=== PATIENT | female | born 1980 | race African-American/Black ===

== ENCOUNTER 2017-03-29 19:06 | Inpatient (IN) ==
[2017-03-29] MEDS ORDERED: ALBUTEROL/IPRATROPIUM 3 ML NEB RESP TX STA (20:09)
[2017-03-29] MEDS ORDERED: methylPREDNISolone SOD SUC 125 MG/2 ML VIAL IV STA (20:09)
[2017-03-29] MEDS ORDERED: MORPHINE 2 MG/1 ML SYRINGE IV STA (20:09)
[2017-03-29] MEDS ORDERED: ONDANSETRON 4 MG/2 ML VIAL IV STA (20:09)
[2017-03-29] MEDS ORDERED: ASPIRIN 325 MG TABLET PO STA (20:09)
[2017-03-29] MEDS ORDERED: FUROSEMIDE 40 MG/4 ML VIAL IV STA (20:09)
--- NOTE | 2017-03-29 20:11 | Emergency Department Note ---
Keven Castano Brittany, am scribing for, and in the presence of, Jesus Woo MD 19:53. Amna Castano Charles R, MD, personally performed the services described in this documentation, ascribed by Suzan Baca in my presence, and it is both accurate and complete . Arrival - Arrival Chief Complaint: Chest Pain Stated Complaint: sob, chest pain ED Nursing Triage Note: TO ER PER W/C WITH COMPLAINT OF SOB THAT STARTED AFTER WALKING DOWN FLIGHT OF STAIRS LEAVING WORK AROUND 1730. PATIENT STATES AFTER SEVERAL BREAKS AND USING INHALER ALSO, SOB DID NOT IMPROVE. PATIENT ALSO REPORTS CHEST PAIN- ,MIDSTERNAL AND NON RADIATING. Mode of Arrival: Ambulatory Limitations: No Limitations Source: Patient - History of Present Illness HPI Narrative: Patient is a 37 y/o black female presenting to the ED with c/o mid-sternal chest pain described as a heaviness that is non-radiating in nature with associated shortness of breath that began around 1730 this evening. Patient states that upon getting off of work she noticed after walking down a flight of stairs she began to feel lightheaded, short of breath, and her chest began to feel heavy. Patient states the more she continued to walk she had difficulty catching her breath and began to experience a pounding headache and vertigo. Patient reports that after taking several breaks and using her inhaler, SOB and other symptoms did not improve. Patient states that she has noticed some swelling of her bilateral lower extremities. Patient says that she does have a history of Sleep Apnea, but does not utilize a home C-Pap machine although she reports that she probably should be using one. Patient states that she was prescribed an inhaler August of 2016 after diagnosis of Bronchitis. Patient denies prior history of Asthma, HTN, IDDM, or NIDDM. Patient states that she is baffled about her current condition due to waking up great this morning and feeling fine most of the day until this evening. Patient has no other complaints. Date of Last Menstrual Period: HYST Allergies/Adverse Reactions: Allergies Allergy/AdvReac Type Severity Reaction Status Date / Time No Known Allergies Allergy Verified 03/29/17 19:26 Review of System - Review of System 12 point system: reviewed and no additional remarkable complaints except as stated - Review of System Constitutional: Absent: chills, fever Eyes: Absent: vision change Respiratory: Present: respiratory distress Cardiovascular: Present: chest pain, edema Gastrointestinal: Absent: nausea, vomiting Musculoskeletal: Absent: arm pain, back pain Neurological: Present: headache, vertigo Medical,Surgical,& Family Hx - Medical History Cardio: History of: Hypertension - Surgical History Reproductive Surgeries: Surgical HX of;: Hysterectomy, Tubal Ligation - Family History Family History: noncontributory - Social History Smoking Status: Never smoker Frequency of Alcohol Use: None Type of Drug Use: None Exam Vital Signs: Vital Signs Temperature 98.1 F 03/29/17 19:08 Pulse Rate 116 H 03/29/17 20:27 Respiratory Rate 20 03/29/17 20:27 Blood Pressure 104/89 03/29/17 19:08 O2 Sat by Pulse Oximetry 99 03/29/17 21:21 - General General appearance: alert, in no apparent distress - Head Head exam: Present: atraumatic, normocephalic, normal inspection - Eye Eye exam: Present: normal appearance, PERRL, EOMI - ENT ENT exam: Present: normal exam, normal oropharynx - Neck Neck exam: Present: normal inspection, full ROM, trachea midline - Chest Chest inspection: Present: normal inspection, symmetric chest wall rise - Respiratory Respiratory exam: Present: rales (bilateral bases), wheezes (bilaterally). Absent: normal lung sounds bilaterally (decreased breath sounds bilaterally) - Cardiovascular Cardiovascular exam: Present: normal rhythm, tachycardia, normal heart sounds. Absent: regular rate - Abdominal Exam Abdominal exam: Present: soft, normal bowel sounds. Absent: tenderness - Extremities Exam Extremities exam: Present: pedal edema (+1 edema to bilateral lower extremities) - Back Exam Back exam: Present: normal inspection - Neurological Exam Neurological exam: Present: alert, oriented X3, CN II-XII intact. Absent: motor sensory deficit - Psychiatric Psychiatric exam: Present: normal affect, normal mood - Skin Skin exam: Present: warm, dry Course - Consultations Consultation #1: Dr. Huang was notified of the blood clot we are going to determine if she has got right heart strain or not to do theEKOS procedure or not, patient will be given Lovenox 1 mg/kg subcu in the emergency room Time: 21:18 Consultation #2: Spoke to Dr. Martinez he says to anticoagulate her, admits to the ICU and admitted to hospitalist service, Dr. Martinez will come in and do a EKOS procedure for a bilateral pulmonary embolus Time: 21:58 Results - Labs CBC & BMP: 03/29/17 19:35 03/29/17 19:35 Lab Results: I have reviewed the patients labs Labs: Laboratory Tests 03/29/17 03/29/17 03/29/17 19:35 19:35 19:35 WBC 8.7 RBC 4.79 Hgb 13.8 Hct 41.5 MCV 86.6 L Plt Count 254 Magnesium 2.1 Troponin I 0.214 H Lipase 170.0 Laboratory Tests 03/29/17 03/29/17 19:35 19:35 D-Dimer, Quantitative 8.4 Sodium 140 Potassium 3.4 L Chloride 103 Carbon Dioxide 27 BUN 14 Creatinine 1.10 H Glucose 135 H Albumin 3.3 L Globulin 4.6 H Albumin/Globulin Ratio 0.7 L Laboratory Tests 03/29/17 03/29/17 19:35 20:55 B-Natriuretic Peptide 23 Urine Color Straw Urine Appearance Clear Urine pH 6.0 Ur Specific [place] 1.008 Urine Protein Negative Urine Glucose (UA) Negative Urine Ketones Negative Urine Blood Small Urine Nitrate Negative Urine Bilirubin Negative Urine Urobilinogen < 2.0 H Urine Leukocytes Negative Urine RBC 1 Urine WBC 2 Ur Squamous Epith Cells Occasional Urine Mucus Occasional - Diagnostic Findings Procedure: Chest x-ray: report reviewed by me (Negative chest.), CT - chest: image reviewed by me, report reviewed by me (Bilateral central and peripheral pulmonary embolus with right heart strain), Ultrasound: image reviewed by me ( Negative DVT lower extremity) Critical Care Time Critical Care Time: Yes Total Critical Care Time: 60 Disposition Clinical Impression: Chest pain, Acute dyspnea, Acute bilateral pulmonary embolus Case discussed with: patient, patient's family Disposition: Still a Patient Condition: Critical Time of Disposition: 22:08
--- NOTE | 2017-03-29 20:15 | XRay Report ---
XR chest 2V Indication: Shortness of breath with chest pain. Chest 2 views: Comparison 01/15/2010. The heart size and mediastinal contour are normal. The lungs and pleural spaces are clear. Bones are unremarkable. Impression: Negative chest. PROCEDURE INTERPRETED AT [facility] DEPARTMENT OF RADIOLOGY Final Report Signed by: Ernie Roca M.D.
[2017-03-29] MEDS ORDERED: FUROSEMIDE 40 MG/4 ML VIAL ONE (20:17)
[2017-03-29] MEDS ORDERED: ONDANSETRON 4 MG/2 ML VIAL ONE (20:17)
[2017-03-29] MEDS ORDERED: ASPIRIN 325 MG TABLET ONE (20:18)
[2017-03-29] MEDS ORDERED: methylPREDNISolone SOD SUC 125 MG/2 ML VIAL ONE (20:18)
[2017-03-29] MEDS ORDERED: MORPHINE 2 MG/1 ML SYRINGE ONE (20:22)
[2017-03-29 20:23] LABS: Basophils # 0.1 10*3/uL (0.0-0.2); Basophils % 0.6 % (0.0-0.8); Eosinophils # 0.1 10*3/uL (0.0-0.87); Hematocrit 41.5 VOL% (35.7-47.0); Hemoglobin 13.8 GM/DL (12.0-16.0); Immature Granulocytes % 0.2 %; Immature Granulocytes Absolute 0.02 #; Lymphocytes # 2.4 10*3/uL (1.4-4.0); Lymphocytes % 27.9 % (21.3-54.2); Mean Corpuscular HGB Conc 33.3 GM/DL (32-36); Mean Corpuscular Hemoglobin 29 PG (27-34); Mean Corpuscular Volume 86.6 FL (87-102); Mean Platelet Volume 10.7 FL (9.6-12.0); Monocytes # 0.5 10*3/uL (0.11-0.8); Monocytes % 5.2 % (1.7-12.7); Neutrophils # 5.7 10*3/uL (1.4-7.4); Neutrophils % 65.1 % (38.7-73.9); Platelet Count 254 T/CUMM (130-400); Red Blood Count 4.79 MC/CUMM (3.8-5.5); Red Cell Distribution Width 13.2 % (9.3-17.3); White Blood Count 8.7 T/CUMM (4-12)
[2017-03-29 20:31] LABS: Magnesium 2.1 MG/DL (1.8-2.4)
[2017-03-29 20:44] LABS: Alanine Aminotransferase 32 U/L (13-56); Albumin 3.3 G/DL (3.4-5.0); Alkaline Phosphatase 113 U/L (45-117); Aspartate Amino Transferase 37 U/L (0-37); Bilirubin,Total < 0.39 MG/DL (0.2-1.0); Blood Urea Nitrogen 14 MG/DL (7-18); Calcium 8.8 MG/DL (8.5-10.1); Glucose 135 MG/DL (74-106); Osmolality,Calculated 281.4 MOS/KG (273-304); Potassium 3.4 MMOL/L (3.5-5.1); Sodium 140 MMOL/L (136-145); Total Protein 7.9 G/DL (6.4-8.3)
[2017-03-29 21:05] LABS: Apearance,Urine CLEAR (Clear); Bilirubin,Urine Negative (Negative); Blood, Urine Small mg/dL (Negative); Glucose,Urine (UA) Negative (Negative); Ketones,Urine Negative (Negative); Mucus,Urine Occasional /LPF (Occasional); Nitrite,Urine Negative (Negative); Protein,Urine Negative; RBC,Urine 1 /HPF (0-4); Squamous Epithelial Cell,Urine Occasional /HPF (0-10); Urine Color Straw (Yellow); Urine Specific Gravity 1.008 (1.001-1.035); Urine Urobilinogen < 2.0 EU/DL (0.2-1.0); WBC,Urine 2 /HPF (0-6)
[2017-03-29] MEDS ORDERED: ENOXAPARIN 100 MG/ML SYRINGE SUBCUT STA (21:17)
[2017-03-29] MEDS ORDERED: ENOXAPARIN 40 MG/0.4 ML SYRINGE ONE (21:24)
[2017-03-29] MEDS ORDERED: ENOXAPARIN 120 MG/0.8 ML SYRINGE SUBCUT ONE (21:24)
[2017-03-29] MEDS ORDERED: HEPARIN/NACL 0.9% 2 UNITS/ML 500 ML IV ONE ×2 (22:28→23:19)
[2017-03-29] MEDS ORDERED: LIDOCAINE 1% 20 ML VIAL ONE (22:28)
[2017-03-29] MEDS ORDERED: fentaNYL 100 MCG/2 ML VIAL ONE (22:28)
[2017-03-29] MEDS ORDERED: MIDAZOLAM 2 MG/2 ML VIAL ONE (22:28)
--- NOTE | 2017-03-29 22:34 | Cardiology Consult Note ---
Assessment and Plan - Time spent with patient Time spent with patient: Less than 30 minutes (1) Bilateral pulmonary embolism Status: Chronic Current Visit: Yes (2) Obstructive sleep apnea Status: Chronic Current Visit: Yes (3) Hypertension Status: Chronic Current Visit: Yes (4) Morbid exogenous obesity Status: Acute Current Visit: Yes History of Present Illness - Data of Consult Patient: new to practice Consult date: 03/29/17 Requesting Physician: Jesus Woo Primary care physician: Tabby Robles - Consult Narrative Reason for consult: Bilateral pulmonary emboli right ventricular enlargement History of present illness: Ms. 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 She states she had to stop several times walking her car which is unusual for her. She came to the emergency room and I was called approximately 9 PM stating that she had large bilateral pulmonary emboli her heart rate was in 112 bpm and her blood pressure was in the 1 teens over 70s. She had a venous Doppler and I am awaiting that result. I reviewed her CT scan from home and she has right ventricular enlargement. She also has bilateral pulmonary emboli in the main pulmonary arteries bilaterally. She has untreated obstructive sleep apnea which she has been told about but does not treat which may contribute to long-standing right ventricular enlargement. I discussed with Dr. Woo over the phone multiple times and came to see the patient. I examined the patient with a very large crowd of friends and family in the emergency room the patient was sitting up in the bed heart rate was 110 bpm blood pressure was 117/72 saturating 98% on 2 L nasal cannula she was obviously dyspneic as she demonstrated tachypnea with a respiratory rate in the low 20s. CC: - Home Medications and Allergies Allergies/Adverse Reactions: Allergies Allergy/AdvReac Type Severity Reaction Status Date / Time No Known Allergies Allergy Verified 03/29/17 19:26 - Constitutional Constitutional: Absent: anorexia, chills - Respiratory Respiratory: Present: cough, dyspnea, dyspnea on exertion, snoring - Gastrointestinal Gastrointestinal: Absent: abdominal pain - Genitourinary Genitourinary: Absent: abnormal vaginal bleeding - Musculoskeletal Musculoskeletal: Absent: arthralgias - Neurological Neurological: Absent: disequilibrium - Endocrine Endocrine: Absent: cold intolerance - Hematologic/Lymphatic Hematologic/Lymphatic: Absent: easy bleeding, easy bruising Medical,Surgical,& Family Hx - Medical History Cardio: History of: Hypertension Respiratory: History of: Obstructive Sleep Apnea - Surgical History Reproductive Surgeries: Surgical HX of;: Hysterectomy, Tubal Ligation Additional Surgical History: Breast reduction, section, abscess drainage in breast and buttocks - Social History Smoking Status: Never smoker Frequency of Alcohol Use: None Type of Drug Use: None Marital Status: Lives With:: Spouse Functional capacity: independent ambulation (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[employer]) Physical Examination Vital Signs Temp Pulse Resp BP Pulse Ox 98.1 F 119 H 26 H 104/89 95 03/29/17 19:08 03/29/17 19:08 03/29/17 19:08 03/29/17 19:08 03/29/17 19:08 General: Present: Other (Appears acutely ill and tachypneic) Neck: Present: Supple Neck Cardiac: Present: Reg Rate and Rhythm (She has slight RV lift), S1/S2, Other ( PMI is not localized) Lungs: Present: Normal Exam (Tachypnea and clear) Neuro: Present: Cranial Nerve 2-12 Intact Abdomen: Present: Soft, Active Bowel Sounds Skin: Present: Clear Extremities: Absent: Edema Result/EKG - Labs CBC & BMP: 03/29/17 19:35 03/29/17 19:35 Labs: Laboratory Results - last 24 hr 03/29/17 03/29/17 03/29/17 19:35 19:35 19:35 WBC RBC Hgb Hct MCV MCH MCHC RDW Plt Count MPV Neut % (Auto) Lymph % (Auto) [place] % (Auto) Eos % (Auto) Baso % (Auto) Neut # (Auto) Lymph # (Auto) [place] # (Auto) Eos # (Auto) Baso # (Auto) Immature Gran % Nucleated RBC % Immature Gran # Nucleated RBCs # Immature Plt Fraction D-Dimer, Quantitative 8.4 Sodium 140 Potassium 3.4 L Chloride 103 Carbon Dioxide 27 Anion Gap 13.4 BUN 14 Creatinine 1.10 H GFR Calculation 110 BUN/Creatinine Ratio 12.00 Glucose 135 H Calculated Osmolality 281.4 Calcium 8.8 Magnesium Total Bilirubin < 0.39 AST 37 ALT 32 Alkaline Phosphatase 113 Troponin I B-Natriuretic Peptide 23 Total Protein 7.9 Albumin 3.3 L Globulin 4.6 H Albumin/Globulin Ratio 0.7 L Lipase Urine Color Urine Appearance Urine pH Ur Specific [place] Urine Protein Urine Glucose (UA) Urine Ketones Urine Blood Urine Nitrate Urine Bilirubin Urine Urobilinogen Urine Leukocytes Urine RBC Urine WBC Ur Squamous Epith Cells Urine Mucus Ur Culture Indicated? 03/29/17 03/29/17 03/29/17 19:35 19:35 19:35 WBC 8.7 RBC 4.79 Hgb 13.8 Hct 41.5 MCV 86.6 L MCH 29 MCHC 33.3 RDW 13.2 Plt Count 254 MPV 10.7 Neut % (Auto) 65.1 Lymph % (Auto) 27.9 [place] % (Auto) 5.2 Eos % (Auto) 1.0 Baso % (Auto) 0.6 Neut # (Auto) 5.7 Lymph # (Auto) 2.4 [place] # (Auto) 0.5 Eos # (Auto) 0.1 Baso # (Auto) 0.1 Immature Gran % 0.2 Nucleated RBC % 0.0 Immature Gran # 0.02 Nucleated RBCs # 0.00 Immature Plt Fraction 0.0 D-Dimer, Quantitative Sodium Potassium Chloride Carbon Dioxide Anion Gap BUN Creatinine GFR Calculation BUN/Creatinine Ratio Glucose Calculated Osmolality Calcium Magnesium 2.1 Total Bilirubin AST ALT Alkaline Phosphatase Troponin I 0.214 H B-Natriuretic Peptide Total Protein Albumin Globulin Albumin/Globulin Ratio Lipase 170.0 Urine Color Urine Appearance Urine pH Ur Specific [place] Urine Protein Urine Glucose (UA) Urine Ketones Urine Blood Urine Nitrate Urine Bilirubin Urine Urobilinogen Urine Leukocytes Urine RBC Urine WBC Ur Squamous Epith Cells Urine Mucus Ur Culture Indicated? 03/29/17 20:55 WBC RBC Hgb Hct MCV MCH MCHC RDW Plt Count MPV Neut % (Auto) Lymph % (Auto) [place] % (Auto) Eos % (Auto) Baso % (Auto) Neut # (Auto) Lymph # (Auto) [place] # (Auto) Eos # (Auto) Baso # (Auto) Immature Gran % Nucleated RBC % Immature Gran # Nucleated RBCs # Immature Plt Fraction D-Dimer, Quantitative Sodium Potassium Chloride Carbon Dioxide Anion Gap BUN Creatinine GFR Calculation BUN/Creatinine Ratio Glucose Calculated Osmolality Calcium Magnesium Total Bilirubin AST ALT Alkaline Phosphatase Troponin I B-Natriuretic Peptide Total Protein Albumin Globulin Albumin/Globulin Ratio Lipase Urine Color Straw Urine Appearance Clear Urine pH 6.0 Ur Specific [place] 1.008 Urine Protein Negative Urine Glucose (UA) Negative Urine Ketones Negative Urine Blood Small Urine Nitrate Negative Urine Bilirubin Negative Urine Urobilinogen < 2.0 H Urine Leukocytes Negative Urine RBC 1 Urine WBC 2 Ur Squamous Epith Cells Occasional Urine Mucus Occasional Ur Culture Indicated? Not indicated - EKG EKG results: interpreted by me (Sinus tachycardia otherwise unremarkable)
[2017-03-29] MEDS ORDERED: ALTEPLASE 2 MG VIAL ONE (22:44)
--- NOTE | 2017-03-29 22:50 | History and Physical Update ---
Sedation H&P Update - History and Physical H&P was reviewed, the patient examined and there: are no changes in the patients condition since last H&P was completed. - Dictation Physical: refer to H&P completed by admitting physician - Physical Exam Mental Status: alert and oriented Heart: other (tachycardia) Lung: clear to auscultation Abdomen: within normal limits Vitals: within normal limits - Sedation Plan for Sedation: moderate Patient Consent: Procedure disscussed with patient and patinet has consented., Risks and benefits were discussed with patient,including infection,, bleeding, injury to surrounding structures, seizure, temporary nerve, Patient understands and accepts potential risks/benefits and agrees to, proceed. ASA Class: IV Airway Assessment: Class IV: Only hard palate visible
--- NOTE | 2017-03-29 23:16 | Hospitalist History & Physical ---
Assessment and Plan (1) Bilateral pulmonary embolism Status: Chronic Assessment and plan: Admit to ICU - Dr. Martinez consulted for Ekos procedure (done tonight) - oxygen - telemetry - SQ Lovenox - serial cardiac enzymes - bilateral venous - Echo in AM - will monitor Will reconcile meds when available Current Visit: Yes History of Present Illness Chief complaint: Shortness of breath chest pain History of present illness: Ms. Mathias is a 37 year old female with a history of HTN, ASMITA (untreated), and morbid obesity that presented to the ER with acute onset of shortess of breath and chest pain that started when she was going down a flight stairs when leaving work. Patient reports resting and using an inhaler without relief. Chest pain is moderate to severe, sternal, and described as heaviness. Patient has never had these symptoms in the past. Patient reports chronic leg pain but nothing out of the ordinary. Patient denies cough, fever, and all other symptoms. Patient reports feeling well prior to the acute shortness of breath. ER workup showed bilateral pulmonary embolism with elevated troponins and hypoxia. Allergies Allergy/AdvReac Type Severity Reaction Status Date / Time No Known Allergies Allergy Verified 03/29/17 19:26 Medical,Surgical,& Family Hx - Medical History Cardio: History of: Hypertension Respiratory: History of: Obstructive Sleep Apnea - Surgical History Reproductive Surgeries: Surgical HX of;: Breast Surgery, Section, Gynecologic Surgery (D and C), Tubal Ligation Orthopedic Surgeries: Surgical HX of;: Orthopedic Surgery (arthroscopic knee surgery) Additional Surgical History: Breast reduction; abscess in the left breast; cyst in the right breast - Family History Additional Family History: family history of lupus and DVT's - Social History Smoking Status: Never smoker Frequency of Alcohol Use: None Type of Drug Use: None Review of systems: 12 point review of systems is negative unless stated in the HPI Exam - Constitutional Vitals: Period Temp Pulse Resp BP Sys/Ashley Pulse Ox Last 24 Hr 98.1 F-98.1 F 116-120 18- 104-104/89-89 95-100 General appearance: morbidly obese - Head Head exam: Present: normal inspection - Eye Eye exam: Present: EOMI - ENT ENT exam: Present: normal exam - Respiratory Respiratory exam: Present: clear to auscultation bilaterally, accessory muscle use, other (tachypnea) - Cardiovascular Cardiovascular exam: Present: tachycardia. Absent: irregular rhythm, systolic murmur - GI/Abdominal GI/Abdominal exam: Present: normal bowel sounds, soft. Absent: tenderness - Extremities Exam Extremities exam: Present: edema (mild lower extremity edema) - Neurological Exam Neurological exam: Present: alert, oriented X3 - Psychiatric Psychiatric exam: Present: normal affect, normal mood - Skin Skin exam: Present: normal color Results - Labs CBC & BMP: 03/29/17 19:35 03/29/17 19:35 - Diagnostic Findings Procedure: CT - chest: pending (Bilateral PE on preliminary)
[2017-03-29] MEDS ORDERED: HEPARIN DRIP 25,000 UNITS/500 ML PREMIX IV SCH (23:45)
[2017-03-29] MEDS ORDERED: HEPARIN DRIP 25,000 UNITS/500 ML PREMIX IV ONE (23:45)
[2017-03-30] MEDS ORDERED: MIDAZOLAM 2 MG/2 ML VIAL ONE (00:01)
--- NOTE | 2017-03-30 00:12 | Cardiology Operative Report ---
Date of Procedure:: 03/30/17 Pre-op diagnosis: Bilateral pulmonary emboli with right ventricular enlargement Post-op diagnosis: same (Bilateral pulmonary emboli right ventricular enlargement and mild pulmonary hypertension) Procedure: After signed informed consent was taken the patient emergency room she was taken emergently for the EKOS catheter placement in the cardiac catheterization lab. Seldinger technique was utilized to obtain access to the right femoral vein a 12 [place]awk sheath was placed over an 035 J-wire. At this time a JR4 catheter was used to direct the wire into the right ventricle pressure measurements were performed. The patient's PA pressure was measured at 36/9 mmHg. The catheter was then used to advance the 035 J-wire into the left pulmonary arterial system. At this time the JR4 catheter was removed and the [facility] and her catheter was advanced over the 035 J-wire. The J-wire was removed the inner catheter was placed into the was infused as well as TPA. Attention was then turned to the right pulmonary artery there was significant difficulty advancing the wire into this region and a Alek wire was used ultimately access was obtained catheter was the catheter was then placed in the standard fashion the longer catheter was placed into the right system. It too had standard coolant, TPA and ultrasound initiated. The 12 [place]awk sheath was then sewn to the right inguinal area. Heparin infusion along with the 2E because catheters infusion were performed. Due to difficulty obtaining access right pulmonary artery a hand-injection was performed to visualize it with JR4 catheter. There is no apparent complication the procedure total fluoroscopy time was 35.9 minutes of total diagnostic x-ray exposure 427 mGy. The patient had mild conscious sedation she was awake during the procedure and at the time of the completion of the procedure saturation was 94% heart rate is 117 sinus tachycardia blood pressure 115/81 Implants: Dual EKOS catheters left and right pulmonary artery Anesthesia: minimal conscious sedation Surgeon / Physician: Lilliam Huang [employer] Supervisor: none Estimated blood loss: none Specimens: none sent Condition: critical Disposition: ICU/CCU
[2017-03-30] MEDS ORDERED: guaiFENesin/DM ER 600-30 MG TABLET PO PRN (00:42)
[2017-03-30] MEDS ORDERED: PROMETHAZINE 25 MG TABLET PO PRN (00:42)
[2017-03-30] MEDS ORDERED: PROMETHAZINE 25 MG/1 ML VIAL IM PRN (00:42)
[2017-03-30] MEDS ORDERED: MORPHINE 2 MG/1 ML SYRINGE IV PRN (00:42)
[2017-03-30] MEDS ORDERED: oxyCODONE/ACETAMINOPHEN 5-325 MG TABLET PO PRN (00:42)
[2017-03-30] MEDS ORDERED: ALBUTEROL 2.5 MG/3 ML NEB RESP TX PRN (00:42)
[2017-03-30] MEDS ORDERED: ALTEPLASE 12 MG in SODIUM CHLORIDE 0.9% 240 ML IV SCH (00:42)
[2017-03-30] MEDS ORDERED: LORazepam 2 MG/1 ML VIAL IV PRN (00:42)
[2017-03-30] MEDS ORDERED: ONDANSETRON 4 MG/2 ML VIAL IV PRN (00:42)
[2017-03-30] MEDS ORDERED: SODIUM CHLORIDE 0.9% 1,000 ML IV SCH ×2 (01:00)
[2017-03-30] MEDS: ACETAMINOPHEN 325 MG TABLET PO PRN ×2 (01:41→16:37)
[2017-03-30] MEDS: PANTOPRAZOLE 40 MG VIAL IV SCH (01:41)
[2017-03-30 01:50] LABS: Basophils % 0.3 % (0.0-0.8); Hematocrit 41.6 VOL% (35.7-47.0); Hemoglobin 13.9 GM/DL (12.0-16.0); Immature Granulocytes % 0.4 %; Immature Granulocytes Absolute 0.03 #; Lymphocytes # 0.7 10*3/uL (1.4-4.0); Lymphocytes % 9.5 % (21.3-54.2); Mean Corpuscular HGB Conc 33.4 GM/DL (32-36); Mean Corpuscular Hemoglobin 29 PG (27-34); Mean Corpuscular Volume 85.4 FL (87-102); Mean Platelet Volume 10.6 FL (9.6-12.0); Monocytes # 0.1 10*3/uL (0.11-0.8); Neutrophils # 6.9 10*3/uL (1.4-7.4); Neutrophils % 88.8 % (38.7-73.9); Platelet Count 254 T/CUMM (130-400); Red Blood Count 4.87 MC/CUMM (3.8-5.5); Red Cell Distribution Width 13.1 % (9.3-17.3); White Blood Count 7.8 T/CUMM (4-12)
[2017-03-30 02:03] LABS: INR 1.1; PT Patient Result 11.7 SECS
[2017-03-30 03:33] LABS: Alanine Aminotransferase 30 U/L (13-56); Albumin 3.3 G/DL (3.4-5.0); Alkaline Phosphatase 113 U/L (45-117); Aspartate Amino Transferase 24 U/L (0-37); Bilirubin,Total < 0.39 MG/DL (0.2-1.0); Blood Urea Nitrogen 14 MG/DL (7-18); Calcium 8.7 MG/DL (8.5-10.1); Glucose 188 MG/DL (74-106); Osmolality,Calculated 282.5 MOS/KG (273-304); Potassium 3.2 MMOL/L (3.5-5.1); Sodium 139 MMOL/L (136-145); Total Protein 7.9 G/DL (6.4-8.3)
--- NOTE | 2017-03-30 06:11 | Ultrasound Report ---
Bilateral lower extremity venous Doppler with marquez scale, Spectral Doppler and color-flow analysis performed and interpreted. Indication: Shortness of breath Scanning over both common femoral veins, superficial femoral veins, greater saphenous veins and popliteal veins demonstrates normal compressibility, color flow, and augmentation. Impression: No evidence of DVT seen in either lower extremity. The Ultrasound images were captured and stored. PROCEDURE INTERPRETED AT [facility] DEPARTMENT OF RADIOLOGY Final Report Signed by: Dr. Tonya Lawson
--- NOTE | 2017-03-30 06:11 | CT Report ---
CT of the chest with intravenous contrast, PE protocol. Axial images were obtained with sagittal and coronal reconstructions. 80 cc Omni 350. No previous study. There is a preliminary report from [facility]. The thyroid gland is normal in size. There is no supraclavicular or axillary lymphadenopathy. The heart is mildly enlarged. There is mild dilatation of the right heart, and left ventricular hypertrophy. No coronary artery calcification is seen. The thoracic aorta is of normal caliber. There is bilateral pulmonary thromboembolism, beginning at the branching of each main pulmonary artery with a moderately prominent thrombus burden. 6 this involves thrombus extending into the secondary branches of the left upper lobe, left lower lobe, right upper lobe, right middle lobe and right lower lobe. There is no pericardial or pleural effusion. There is bilateral dependent hypoaeration. No infiltrates. No pneumothorax. Degenerative changes are noted within the spinal column. Impression: Bilateral pulmonary thromboembolism. The critical test result was communicated between the [facility] physician and the ordering physician. exam was performed using one or more of the following dose reduction techniques: Automated exposure control, adjustment of the mA and/or kV according to patient size, or use of iterative reconstruction technique. PROCEDURE INTERPRETED AT [facility] DEPARTMENT OF RADIOLOGY Final Report Signed by: Dr. Tonya Lawson
--- NOTE | 2017-03-30 07:02 | Cardiology Progress Note ---
Assessment and Plan - Time spent with patient Time spent with patient: Greater than 30 minutes (1) Bilateral pulmonary embolism Status: Acute Assessment and plan: No apparent complications thus far of alteplase infusion anticipate discontinuation of alteplase and heparin infusion today around 10:00. We will order a Xarelto dose for around 9 and anticipate discontinuation of the catheters. She will need to be on full dose anticoagulation for a minimum of 6 months. Hospitalists have so kindly ordered the workup for hypercoagulable state which is pending. Current Visit: Yes (2) Obstructive sleep apnea Status: Chronic Assessment and plan: Consulting Dr. Osei Current Visit: Yes (3) Hypertension Status: Chronic Assessment and plan: Well-controlled at this point Current Visit: Yes (4) Morbid exogenous obesity Status: Chronic Assessment and plan: Weight loss caloric restriction and exercise paramount. Current Visit: Yes Cardiology - PN: Subj Interval history: Ms. Mathias states that she clearly is less dyspneic this morning. She is significantly less tachypneic her respiratory rate this morning is down below 20. Her labs were all reviewed. Her H&H have been stable her fibrinogen etc. have been fine her troponin has been statically elevated. Her access site looks quite good this morning. She has had no signs or symptoms of bleeding. She is lying flat in the bed her heart rate is down in the upper 80s low 90s saturating 95%. She is subjectively dramatically improved and objectively improved as well.. Exam (Progress Note) - Constitutional Vitals: Period Temp Pulse Resp BP Sys/Ashley Pulse Ox Last 24 Hr 97.2 F-98.1 F 100-120 12-26 91-119/63-89 90-100 General appearance: morbidly obese - Eye Eye exam: Present: EOMI Pupils: Present: GEM - ENT ENT exam: Present: other (ASA 4 airway) - Respiratory Respiratory exam: Present: clear to auscultation bilaterally (I do not hear rales) - Cardiovascular Cardiovascular exam: Present: regular rate and rhythm (RV lift appears less today), other (Venous access site with 12 Greek catheter looks good) - GI/Abdominal GI/Abdominal exam: Present: normal bowel sounds - Extremities Exam Extremities exam: Present: normal inspection - Neurological Exam Neurological exam: Present: alert, oriented X3 - Psychiatric Psychiatric exam: Present: normal affect, normal mood - Skin Skin exam: Present: normal color Result/EKG - Labs CBC & BMP: 03/30/17 01:28 03/30/17 01:28 Labs: Laboratory Results - last 24 hr 03/29/17 03/29/17 03/29/17 19:35 19:35 19:35 WBC RBC Hgb Hct MCV MCH MCHC RDW Plt Count MPV Neut % (Auto) Lymph % (Auto) [place] % (Auto) Eos % (Auto) Baso % (Auto) Neut # (Auto) Lymph # (Auto) [place] # (Auto) Eos # (Auto) Baso # (Auto) Immature Gran % Nucleated RBC % Immature Gran # Nucleated RBCs # Immature Plt Fraction INR PT Patient/Control Mix Fibrinogen D-Dimer, Quantitative 8.4 Circ Anticoag PTT Sodium 140 Potassium 3.4 L Chloride 103 Carbon Dioxide 27 Anion Gap 13.4 BUN 14 Creatinine 1.10 H GFR Calculation 110 BUN/Creatinine Ratio 12.00 Glucose 135 H Calculated Osmolality 281.4 Calcium 8.8 Magnesium Total Bilirubin < 0.39 AST 37 ALT 32 Alkaline Phosphatase 113 Troponin I B-Natriuretic Peptide 23 Total Protein 7.9 Albumin 3.3 L Globulin 4.6 H Albumin/Globulin Ratio 0.7 L Lipase Urine Color Urine Appearance Urine pH Ur Specific [place] Urine Protein Urine Glucose (UA) Urine Ketones Urine Blood Urine Nitrate Urine Bilirubin Urine Urobilinogen Urine Leukocytes Urine RBC Urine WBC Ur Squamous Epith Cells Urine Mucus Ur Culture Indicated? 03/29/17 03/29/17 03/29/17 19:35 19:35 19:35 WBC 8.7 RBC 4.79 Hgb 13.8 Hct 41.5 MCV 86.6 L MCH 29 MCHC 33.3 RDW 13.2 Plt Count 254 MPV 10.7 Neut % (Auto) 65.1 Lymph % (Auto) 27.9 [place] % (Auto) 5.2 Eos % (Auto) 1.0 Baso % (Auto) 0.6 Neut # (Auto) 5.7 Lymph # (Auto) 2.4 [place] # (Auto) 0.5 Eos # (Auto) 0.1 Baso # (Auto) 0.1 Immature Gran % 0.2 Nucleated RBC % 0.0 Immature Gran # 0.02 Nucleated RBCs # 0.00 Immature Plt Fraction 0.0 INR PT Patient/Control Mix Fibrinogen D-Dimer, Quantitative Circ Anticoag PTT Sodium Potassium Chloride Carbon Dioxide Anion Gap BUN Creatinine GFR Calculation BUN/Creatinine Ratio Glucose Calculated Osmolality Calcium Magnesium 2.1 Total Bilirubin AST ALT Alkaline Phosphatase Troponin I 0.214 H B-Natriuretic Peptide Total Protein Albumin Globulin Albumin/Globulin Ratio Lipase 170.0 Urine Color Urine Appearance Urine pH Ur Specific [place] Urine Protein Urine Glucose (UA) Urine Ketones Urine Blood Urine Nitrate Urine Bilirubin Urine Urobilinogen Urine Leukocytes Urine RBC Urine WBC Ur Squamous Epith Cells Urine Mucus Ur Culture Indicated? 03/29/17 03/30/17 03/30/17 20:55 01:27 01:28 WBC RBC Hgb Hct MCV MCH MCHC RDW Plt Count MPV Neut % (Auto) Lymph % (Auto) [place] % (Auto) Eos % (Auto) Baso % (Auto) Neut # (Auto) Lymph # (Auto) [place] # (Auto) Eos # (Auto) Baso # (Auto) Immature Gran % Nucleated RBC % Immature Gran # Nucleated RBCs # Immature Plt Fraction INR 1.1 PT Patient/Control Mix 11.7 Fibrinogen D-Dimer, Quantitative Circ Anticoag PTT Sodium Potassium Chloride Carbon Dioxide Anion Gap BUN Creatinine GFR Calculation BUN/Creatinine Ratio Glucose Calculated Osmolality Calcium Magnesium Total Bilirubin AST ALT Alkaline Phosphatase Troponin I 0.557 H D B-Natriuretic Peptide Total Protein Albumin Globulin Albumin/Globulin Ratio Lipase Urine Color Straw Urine Appearance Clear Urine pH 6.0 Ur Specific [place] 1.008 Urine Protein Negative Urine Glucose (UA) Negative Urine Ketones Negative Urine Blood Small Urine Nitrate Negative Urine Bilirubin Negative Urine Urobilinogen < 2.0 H Urine Leukocytes Negative Urine RBC 1 Urine WBC 2 Ur Squamous Epith Cells Occasional Urine Mucus Occasional Ur Culture Indicated? Not indicated 03/30/17 03/30/17 03/30/17 01:28 01:28 01:28 WBC 7.8 RBC 4.87 Hgb 13.9 Hct 41.6 MCV 85.4 L MCH 29 MCHC 33.4 RDW 13.1 Plt Count 254 MPV 10.6 Neut % (Auto) 88.8 H Lymph % (Auto) 9.5 L [place] % (Auto) 1.0 L Eos % (Auto) 0.0 Baso % (Auto) 0.3 Neut # (Auto) 6.9 Lymph # (Auto) 0.7 L [place] # (Auto) 0.1 L Eos # (Auto) 0.0 Baso # (Auto) 0.0 Immature Gran % 0.4 Nucleated RBC % 0.0 Immature Gran # 0.03 Nucleated RBCs # 0.00 Immature Plt Fraction 0.0 INR PT Patient/Control Mix Fibrinogen 394 D-Dimer, Quantitative Circ Anticoag PTT 35.8 Sodium Potassium Chloride Carbon Dioxide Anion Gap BUN Creatinine GFR Calculation BUN/Creatinine Ratio Glucose Calculated Osmolality Calcium Magnesium Total Bilirubin AST ALT Alkaline Phosphatase Troponin I B-Natriuretic Peptide Total Protein Albumin Globulin Albumin/Globulin Ratio Lipase Urine Color Urine Appearance Urine pH Ur Specific [place] Urine Protein Urine Glucose (UA) Urine Ketones Urine Blood Urine Nitrate Urine Bilirubin Urine Urobilinogen Urine Leukocytes Urine RBC Urine WBC Ur Squamous Epith Cells Urine Mucus Ur Culture Indicated? 03/30/17 01:28 WBC RBC Hgb Hct MCV MCH MCHC RDW Plt Count MPV Neut % (Auto) Lymph % (Auto) [place] % (Auto) Eos % (Auto) Baso % (Auto) Neut # (Auto) Lymph # (Auto) [place] # (Auto) Eos # (Auto) Baso # (Auto) Immature Gran % Nucleated RBC % Immature Gran # Nucleated RBCs # Immature Plt Fraction INR PT Patient/Control Mix Fibrinogen D-Dimer, Quantitative Circ Anticoag PTT Sodium 139 Potassium 3.2 L Chloride 104 Carbon Dioxide 25 Anion Gap 13.2 BUN 14 Creatinine 1.00 GFR Calculation 125 BUN/Creatinine Ratio 14.00 Glucose 188 H Calculated Osmolality 282.5 Calcium 8.7 Magnesium Total Bilirubin < 0.39 AST 24 ALT 30 Alkaline Phosphatase 113 Troponin I B-Natriuretic Peptide Total Protein 7.9 Albumin 3.3 L Globulin 4.6 H Albumin/Globulin Ratio 0.7 L Lipase Urine Color Urine Appearance Urine pH Ur Specific [place] Urine Protein Urine Glucose (UA) Urine Ketones Urine Blood Urine Nitrate Urine Bilirubin Urine Urobilinogen Urine Leukocytes Urine RBC Urine WBC Ur Squamous Epith Cells Urine Mucus Ur Culture Indicated?
[2017-03-30] MEDS ORDERED: POTASSIUM CHLORIDE 20 MEQ TABLET PO ONE (07:05)
--- NOTE | 2017-03-30 07:42 | EKG Report ---
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
--- NOTE | 2017-03-30 07:42 | EKG Report ---
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
[2017-03-30] MEDS: POTASSIUM CHLORIDE 20 MEQ TABLET PO SCH (08:57)
[2017-03-30] MEDS: RIVAROXABAN 15 MG TABLET PO SCH ×2 (08:57→16:38)
[2017-03-30] MEDS: MAGNESIUM OXIDE 400 MG TABLET PO SCH ×2 (08:57→20:13)
[2017-03-30] MEDS ORDERED: ENOXAPARIN 40 MG/0.4 ML SYRINGE SUBCUT SCH (09:00)
[2017-03-30] MEDS ORDERED: ENOXAPARIN 120 MG/0.8 ML SYRINGE SUBCUT SCH (09:00)
--- NOTE | 2017-03-30 11:12 | Hospitalist Progress Note ---
Assessment and Plan (1) Bilateral pulmonary embolism Status: Acute Assessment and plan: 1) bilateral PE- she has responded well to EKOS with improvement in symptoms. She is now on Xarelto per DR Huang. Once catheters are removed she can move to the floor. Hypercoag work up pending. 2)morbid obesity- she has recently started a program to lose weight with diet and exercise. 3)hypokalemia- replacing. Current Visit: Yes (2) Hypokalemia Status: Acute Current Visit: Yes (3) Obstructive sleep apnea Status: Chronic Current Visit: Yes (4) Hypertension Status: Chronic Current Visit: Yes (5) Morbid exogenous obesity Status: Chronic Current Visit: Yes Hospitalist: Subjective Interval history: Mrs Mathias is feeling good this morning. She is breathing easily. No pain. She should have the EKOS catheters removed this morning. She has had xarelto. She will be able to move to the floor. She has a strong family history of clots in her maternal grandmother, and a maternal aunt and uncle. She had a persistent "cramp" in her right calf and posterior thigh for several weeks which she thought was related to her new exercise program but in retrospect she thinks it was a DVT. Hypercoag workup underway. Exam - Constitutional Vitals: Period Temp Pulse Resp BP Sys/Ashley Pulse Ox Last 24 Hr 97.2 F-98.1 F 100-120 12-26 91-119/63-89 90-100 General appearance: no acute distress, morbidly obese - Eye Eye exam: Present: EOMI. Absent: scleral icterus - Respiratory Respiratory exam: Present: clear to auscultation bilaterally - Cardiovascular Cardiovascular exam: Present: regular rate and rhythm - GI/Abdominal GI/Abdominal exam: Present: normal bowel sounds, soft. Absent: tenderness - Extremities Exam Extremities exam: Absent: edema Results - Labs CBC & BMP: 03/30/17 01:28 03/30/17 01:28 Lab Results: I have reviewed the past 24 hour labs
[2017-03-30] MEDS ORDERED: GLUCAGON 1 MG VIAL IM PRN (11:18)
[2017-03-30] MEDS ORDERED: DEXTROSE 50% 25 GM/50 ML SYRINGE IV PRN (11:18)
[2017-03-30 11:19] LABS: Partial Thromboplastin Time 43.4 SECS (0-40)
[2017-03-30] MEDS: INSULIN LISPRO 100 UNIT/ML SUBCUT SCH ×3 (12:49→20:14)
--- NOTE | 2017-03-30 13:11 | Sleep Medicine Consult ---
Assessment and Plan (1) Obstructive sleep apnea Status: Chronic Assessment and plan: We will get her set up on her CPAP that is prescribed at 10 cm and follow-up results. Thank you for this consult and the opportunity to participate in her care. Current Visit: Yes (2) Hypertension Status: Chronic Assessment and plan: The prevalence rate for obstructive sleep apnea patients with hypertension is 35 %. That rate can be as high as 80% in patients who require 4 or more medications for blood pressure control. Current Visit: Yes History of Present Illness Chief complaint: Sleep apnea History of present illness: Ms. Mathias is a 37 year old female known to me from previous sleep evaluation. She had been diagnosed with obstructive sleep apnea originally in 2013. She had a diagnostic AHI of 19 and was very refractory to CPAP and BiPAP and had been set up for full night re-titration with BiPAP but did not return for her titration study. We saw her back in December and she was reevaluated and set up for titration. She had good results at 10 cm but had not yet returned to cotton picker her CPAP machine. Yesterday, she developed significant shortness of breath after going downstairs from work to clock out. She presented to the emergency room and was diagnosed with bilateral pulmonary embolism. She has a long history of bilateral lower extremity swelling but no prior history of blood clots. She does have a family history of blood clots. She does have a history of hypertension. Home Medications Medication Instructions Recorded Confirmed Type Ergocalciferol (Vitamin D2) 50,000 unit PO DAILY 03/30/17 03/30/17 History [Vitamin D2] Furosemide [Furosemide] 20 mg PO DAILY 03/30/17 03/30/17 History Ibuprofen [Ibuprofen] 800 mg PO DAILY 03/30/17 03/30/17 History Liraglutide [Victoza 2-Faizan] 1.2 ml SUBCUT AC BREAKFAST 03/30/17 03/30/17 History Losartan Potassium [Losartan 25 mg PO DAILY 03/30/17 03/30/17 History Potassium] Potassium Chloride [Klor-Con M20] 20 meq PO DAILY 03/30/17 03/30/17 History Topiramate [Topiramate] 25 mg PO BEDTIME 03/30/17 03/30/17 History hydroCHLOROthiazide 50 mg PO DAILY 03/30/17 03/30/17 History [Hydrochlorothiazide] Allergies Allergy/AdvReac Type Severity Reaction Status Date / Time No Known Allergies Allergy Verified 03/29/17 19:26 Review of systems: Otherwise unremarkable from a sleep medicine standpoint. Exam (Pulmonay) H&P - Constitutional Vitals: Period Temp Pulse Resp BP Sys/Ashley Pulse Ox Last 24 Hr 97.1 F-98.1 F 79-120 12- 91-119/63-89 90-100 Exam: She is alert and responsive in no acute distress. Pupils equal round reactive to light and accommodation. Extraocular movements intact. Oropharynx with a class III Mallampati exam. Neck is supple without adenopathy or thyromegaly. No supraclavicular adenopathy is noted. Chest with symmetrical breath sounds without focal wheeze, rhonchi, or rales. Cardiac exam reveals a regular rhythm without murmur or gallop. Abdomen obese nontender without palpable hepatosplenomegaly or mass. Extremities with trace edema. Neurologically, she is grossly intact. Medical,Surgical,& Family Hx - Medical History Cardio: History of: Hypertension Respiratory: History of: Obstructive Sleep Apnea - Surgical History Reproductive Surgeries: Surgical HX of;: Breast Surgery, Section, Gynecologic Surgery (D and C), Hysterectomy, Tubal Ligation Orthopedic Surgeries: Surgical HX of;: Orthopedic Surgery (arthroscopic knee surgery) - Social History Smoking Status: Never smoker Frequency of Alcohol Use: None Type of Drug Use: None Results - Labs CBC & BMP: 03/30/17 01:28 03/30/17 01:28 Lab Results: I have reviewed the past 24 hour labs
--- NOTE | 2017-03-30 16:52 | ECHO Report ---
Rosemarie Mathias 03/30/2017 Exam Date: 11:43 Referring Physician: Cecelia Walls Technologist: AUNDREA Age: 37 Ht (in): 68 Wt (lb): 353 FExam Location: [facility] Gender: Echo [id number]: Bilateral pulmonary embolism, PulmonIndications:ry HTN, ASMITA, Essential (primary) hypertension, Morbid (severe) obesity due to excess calories BP: 104 / 73 HR: 85 SinusRhythm: goodTechnical Quality: IMPRESSIONS Left ventricular ejection fraction is estimated at 55 %. There is flattening of the intraventricular septum with systole suggesting right-sided pressure overload. Diastolic parameters are most consistent with grade 1 diastolic dysfunction or impaired relaxation. Right ventricular cavity dilatation and hypokinesis suggesting right ventricular failure and acute right-sided pressure overload Right ventricular systolic pressure is estimated to be 31 mmHg plus the right atrial pressure MEASUREMENTS (Male / Female) Normal Values 2D ECHO LV Diastolic Diameter PLAX 5.1 cm 4.2 - 5.9 / 3.9 - 5.3 cm LV Systolic Diameter PLAX 2.3 cm LV Fractional Shortening PLAX 55.2 % IVS Diastolic Thickness 0.9 cm 0.6 - 1.0 / 0.6 - 0.9 cm LVPW Diastolic Thickness 0.9 cm 0.6 - 1.0 / 0.6 - 0.9 cm RV Internal Dim ED PLAX 4.1 cm Aortic Root Diameter 3.9 cm LA Systolic Diameter LX 3.7 cm 3.0 - 4.0 / 2.7 - 3.8 cm DOPPLER TR Peak Velocity 278.0 cm/s TR Peak Gradient 30.9 mmHg FINDINGS Left Ventricle Normal left ventricular cavity size. Normal left ventricular wall thickness. Left ventricular ejection fraction is estimated at 55 %. There is no regional wall motion abnormality. There is flattening of the intraventricular septum with systole suggesting right-sided pressure overload. Diastolic parameters are most consistent with grade 1 diastolic dysfunction or impaired relaxation Right Ventricle The right ventricle is normal in size and function. Right Atrium The right atrium is normal in size. Left Atrium The left atrium is normal in size. Mitral Valve Morphologically normal mitral valve without significant stenosis or prolapse. There is no mitral regurgitation. Aortic Valve Morphologically normal aortic valve without significant sclerosis or stenosis. There is no aortic regurgitation. Tricuspid Valve Morphologically normal tricuspid valve. Mild tricuspid valve regurgitation. Tricuspid regurgitation velocities suggest a RVSP of 31 mmHg. Pulmonic Valve Morphologically normal pulmonic valve. Trace pulmonary valve regurgitation. Pericardium Normal pericardium without effusion. Aorta Normal ascending aorta dimension. Lilliam Huang (Electronically Signed) 30 March 2017 Final Date: 16:51
[2017-03-30 23:39] LABS: Partial Thromboplastin Time 32.7 SECS (0-40)
[2017-03-31] MEDS: PANTOPRAZOLE 40 MG VIAL IV SCH
[2017-03-31 06:17] LABS: Basophils % 0.3 % (0.0-0.8); Eosinophils % 0.2 % (0.00-10.9); Hematocrit 36.1 VOL% (35.7-47.0); Hemoglobin 12.1 GM/DL (12.0-16.0); Immature Granulocytes % 0.4 %; Immature Granulocytes Absolute 0.04 #; Lymphocytes # 3.2 10*3/uL (1.4-4.0); Lymphocytes % 34.5 % (21.3-54.2); Mean Corpuscular HGB Conc 33.5 GM/DL (32-36); Mean Corpuscular Hemoglobin 29 PG (27-34); Monocytes # 0.6 10*3/uL (0.11-0.8); Monocytes % 6.1 % (1.7-12.7); Neutrophils # 5.4 10*3/uL (1.4-7.4); Neutrophils % 58.5 % (38.7-73.9); Platelet Count 237 T/CUMM (130-400); Red Cell Distribution Width 13.3 % (9.3-17.3); White Blood Count 9.2 T/CUMM (4-12)
[2017-03-31 06:47] LABS: Calcium 8.2 MG/DL (8.5-10.1); Magnesium 2.4 MG/DL (1.8-2.4); Osmolality,Calculated 281.4 MOS/KG (273-304); Potassium 3.3 MMOL/L (3.5-5.1)
[2017-03-31] MEDS: INSULIN LISPRO 100 UNIT/ML SUBCUT SCH ×4 (08:29→20:22)
[2017-03-31] MEDS ORDERED: ERGOCALCIFEROL 50,000 UNIT CAPSULE PO SCH (09:00)
[2017-03-31] MEDS: DOCUSATE SODIUM 100 MG CAPSULE PO PRN (09:02)
[2017-03-31] MEDS: POTASSIUM CHLORIDE 20 MEQ TABLET PO SCH (09:03)
[2017-03-31] MEDS: FUROSEMIDE 20 MG TABLET PO SCH (09:03)
[2017-03-31] MEDS: LOSARTAN 25 MG TABLET PO SCH (09:03)
[2017-03-31] MEDS: RIVAROXABAN 15 MG TABLET PO SCH ×2 (09:03→16:54)
[2017-03-31] MEDS: MAGNESIUM OXIDE 400 MG TABLET PO SCH ×2 (09:03→20:20)
[2017-03-31 11:13] LABS: Partial Thromboplastin Time 29.5 SECS (0-40)
--- NOTE | 2017-03-31 11:28 | Hospitalist Progress Note ---
Assessment and Plan (1) Bilateral pulmonary embolism Status: Acute Assessment and plan: Impression: 1. Bilateral pulmonary embolism Plan: Await further recommendations from cardiology regarding timing of discharge. This note was completed using [employer] voice recognition software. There may be taping supervisor errors as a result. Current Visit: Yes Hospitalist: Subjective Interval history: Follow-up pulmonary embolism. The patient feels better. She denies any dyspnea. She is not requiring any supplemental oxygen. She is anxious to go home. Anticoagulation has been instituted. Exam - Constitutional Vitals: Period Temp Pulse Resp BP Sys/Ashley Pulse Ox Last 24 Hr 97.0 F-97.9 F 75-97 18-23 97-142/60-98 91-100 Vital signs are noted above. Heart is regular with no murmur or gallop. She is moving air well bilaterally. Abdomen is obese and soft with no mass. She is awake and alert. Results - Labs CBC & BMP: 03/31/17 06:07 03/31/17 06:07 Lab Results: I have reviewed the past 24 hour labs
[2017-03-31 11:58] LABS: Protein C Activity Plasma 135 % (70 - 150)
[2017-03-31 12:23] LABS: Coag Factor VIII Activity Assa 161 % (55 - 200)
--- NOTE | 2017-03-31 16:59 | Cardiology Progress Note ---
I, Camryn Salas, RN, am scribing for, and in the presence of, Lilliam Huang, 16 :59. Assessment and Plan (1) Bilateral pulmonary embolism Status: Acute Assessment and plan: Status post EKOS and doing well. No apparent complications in the short-term. She may need repeat echocardiography in 3 months to assess PA pressures. I have nothing further to add at this time and I will sign off. Current Visit: Yes (2) Obstructive sleep apnea Status: Chronic Current Visit: Yes (3) Hypertension Status: Chronic Current Visit: Yes Qualifiers: Hypertension type: essential hypertension Qualified Code(s): I10 - Essential (primary) hypertension (4) Morbid exogenous obesity Status: Chronic Current Visit: Yes (5) Pulmonary hypertension Status: Chronic Current Visit: Yes Cardiology - PN: Subj Interval history: Summary: Ms. 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 She states she had to stop several times walking her car which is unusual for her. She came to the emergency room for further evaluation. CT of the chest indicated bilateral pulmonary thromboembolism. Venous Doppler was negative for DVT in either lower extremity. She was taken emergently to the cardiac catheterization lab for EKOS catheter placement. March 31, 2017: Ms. Mathias is resting in bed no acute distress. Her EKOS catheters were removed yesterday and she is seen today on 4 E. She denies any chest pain or shortness of breath. Right groin is soft without evidence of bleeding or hematoma. She denies any tenderness at site or down her right leg. Vital signs were stable throughout the night. She has been started on Xarelto. Her potassium is low at 3.3, she takes potassium 20 meq p.o. daily. Echocardiogram done March 30 with ejection fraction 55%. The patient is subjectively much improved she does not have dyspnea going to the bathroom. She has not been up and out of the home and I recommended that she do this. The patient is off oxygen and she looks excellent. Her cath site looks good. Have nothing further to add at this time and I will sign off. The hypercoagulable workup is pending. Exam (Progress Note) - Constitutional Vitals: Period Temp Pulse Resp BP Sys/Ashley Pulse Ox Last 24 Hr 97.0 F-97.9 F 75-97 18-24 97-142/60-98 91-100 General appearance: no acute distress, morbidly obese - Head Head exam: Absent: abrasion, hematoma - Eye Eye exam: Absent: periorbital swelling, laceration to eyelids Pupils: Present: GEM - Respiratory Respiratory exam: Present: clear to auscultation bilaterally. Absent: accessory muscle use, chest wall tenderness - Cardiovascular Cardiovascular exam: Present: regular rate and rhythm - GI/Abdominal GI/Abdominal exam: Present: normal bowel sounds, tenderness, soft. Absent: distended - Extremities Exam Extremities exam: Present: edema, other (Right groin soft without evidence of bleeding or hematoma) - Neurological Exam Neurological exam: Present: alert, oriented X3 - Psychiatric Psychiatric exam: Present: normal affect, normal mood - Skin Skin exam: Present: warm, dry Result/EKG - Labs CBC & BMP: 03/31/17 06:07 03/31/17 06:07 Lab Results: I have reviewed the past 24 hour labs Labs: Laboratory Results - last 24 hr 03/30/17 03/30/17 03/30/17 10:53 16:10 20:05 WBC RBC Hgb Hct MCV MCH MCHC RDW Plt Count MPV Neut % (Auto) Lymph % (Auto) [place] % (Auto) Eos % (Auto) Baso % (Auto) Neut # (Auto) Lymph # (Auto) [place] # (Auto) Eos # (Auto) Baso # (Auto) Immature Gran % Nucleated RBC % Immature Gran # Nucleated RBCs # Immature Plt Fraction Fibrinogen 349 Circ Anticoag PTT 43.4 H D Sodium Potassium Chloride Carbon Dioxide Anion Gap BUN Creatinine GFR Calculation BUN/Creatinine Ratio Glucose POC Glucose 103 208 H Calculated Osmolality Calcium Magnesium 03/30/17 03/31/17 03/31/17 22:54 06:07 06:07 WBC 9.2 RBC 4.20 Hgb 12.1 Hct 36.1 MCV 86.0 L MCH 29 MCHC 33.5 RDW 13.3 Plt Count 237 MPV 10.0 Neut % (Auto) 58.5 Lymph % (Auto) 34.5 [place] % (Auto) 6.1 Eos % (Auto) 0.2 Baso % (Auto) 0.3 Neut # (Auto) 5.4 Lymph # (Auto) 3.2 [place] # (Auto) 0.6 Eos # (Auto) 0.0 Baso # (Auto) 0.0 Immature Gran % 0.4 Nucleated RBC % 0.0 Immature Gran # 0.04 Nucleated RBCs # 0.00 Immature Plt Fraction 0.0 Fibrinogen 341 Circ Anticoag PTT 32.7 D Sodium 140 Potassium 3.3 L Chloride 103 Carbon Dioxide 30 Anion Gap 10.3 BUN 18 Creatinine 1.10 H GFR Calculation 111 BUN/Creatinine Ratio 16.00 Glucose 118 H POC Glucose Calculated Osmolality 281.4 Calcium 8.2 L Magnesium 2.4 03/31/17 08:27 WBC RBC Hgb Hct MCV MCH MCHC RDW Plt Count MPV Neut % (Auto) Lymph % (Auto) [place] % (Auto) Eos % (Auto) Baso % (Auto) Neut # (Auto) Lymph # (Auto) [place] # (Auto) Eos # (Auto) Baso # (Auto) Immature Gran % Nucleated RBC % Immature Gran # Nucleated RBCs # Immature Plt Fraction Fibrinogen Circ Anticoag PTT Sodium Potassium Chloride Carbon Dioxide Anion Gap BUN Creatinine GFR Calculation BUN/Creatinine Ratio Glucose POC Glucose 135 H Calculated Osmolality Calcium Magnesium Omaira, Lilliam Huang, DO, personally performed the services described in this documentation, ascribed by Camryn Salas RN in my presence, and it is both accurate and complete [phone] .
--- NOTE | 2017-03-31 18:27 | Sleep Medicine Progress Note ---
Assessment and Plan (1) Obstructive sleep apnea Status: Chronic Assessment and plan: Needs to get her CPAP and be compliant. Follow up in sleep clinic. Current Visit: Yes (2) Hypertension Status: Chronic Current Visit: Yes Qualifiers: Hypertension type: essential hypertension Qualified Code(s): I10 - Essential (primary) hypertension Sleep Medicine Subjective Interval history: Patient did not get cpap in past because she was unable or unwilling to pay her deductible. She is now working on payment plan with DME to get CPAP. I have stressed importance of getting CPAP to prevent future medical complications of untreated ASMITA. Exam (Progress Note) - Constitutional Vitals: Period Temp Pulse Resp BP Sys/Ashley Pulse Ox Last 24 Hr 97.0 F-98.0 F 84-97 18-20 83-134/54-87 91-98 Results - Labs CBC & BMP: 03/31/17 06:07 03/31/17 06:07 Lab Results: I have reviewed the past 24 hour labs
[2017-04-01] MEDS: PANTOPRAZOLE 40 MG VIAL IV SCH (00:19)
[2017-04-01] MEDS: DOCUSATE SODIUM 100 MG CAPSULE PO PRN (09:20)
[2017-04-01] MEDS: INSULIN LISPRO 100 UNIT/ML SUBCUT SCH ×2 (09:20→12:40)
[2017-04-01] MEDS: MAGNESIUM OXIDE 400 MG TABLET PO SCH (09:21)
[2017-04-01] MEDS: FUROSEMIDE 20 MG TABLET PO SCH (09:21)
[2017-04-01] MEDS: RIVAROXABAN 15 MG TABLET PO SCH (09:21)
[2017-04-01] MEDS: LOSARTAN 25 MG TABLET PO SCH (09:21)
[2017-04-01] MEDS: POTASSIUM CHLORIDE 20 MEQ TABLET PO SCH (09:21)
[2017-04-01 10:03] VITALS: BP 131/86
[2017-04-01 11:07] LABS: Partial Thromboplastin Time 28.7 SECS (0-40)
--- NOTE | 2017-04-01 11:07 | Discharge Summary ---
Hospital Course - Hospital Course Hospital Course: Discharge diagnosis: 1. Bilateral pulmonary emboli 2. Morbid obesity The patient presented to the hospital for evaluation of some dyspnea. CT pulmonary angiogram showed bilateral pulmonary emboli. She was taken to the cardiac Telecom Sales Consultant, and the emboli were extracted by cardiology. After the procedure, her dyspnea was greatly improved. She was placed on anticoagulants. She has it appears to be a family history of a hypercoagulable disorder, and results of her workup are pending at the time of this dictation. Medication reconciliation has been performed. Regular diet. Activity as tolerated. Follow-up with local physician in less than 1 week. This note was completed using [employer] voice recognition software. There may be follow up rep errors as a result. Diagnosis - Discharge Diagnosis (1) Bilateral pulmonary embolism Status: Acute Discharge Plan - Discharge Data Disposition: Disch To Home/Self Care Condition at Discharge: Stable Discharge Diet: advance to your usual diet Activity: resume usual activities as tolerated Hygiene: no restrictions - Discharge Medications New Rivaroxaban [Xarelto] 15 mg PO BID W/MEALS #30 tablet Continue hydroCHLOROthiazide [Hydrochlorothiazide] 50 mg PO DAILY Topiramate 25 mg PO BEDTIME Potassium Chloride [Klor-Con M20] 20 meq PO DAILY Losartan Potassium 25 mg PO DAILY Liraglutide [Victoza 2-Faizan] 1.2 ml SUBCUT AC BREAKFAST Furosemide 20 mg PO DAILY Ibuprofen 800 mg PO DAILY - Follow Up or Referral - Forms/Instructions Exam - Constitutional Vitals: Period Temp Pulse Resp BP Sys/Ashley Pulse Ox Last 24 Hr 96.6 F-98.0 F 77-99 18-22 83-131/54-87 93-98 Vital signs are noted above. Heart is regular with no murmur or gallop. Lungs are clear with no rales or wheezes. She is awake and alert. Discharge Results Procedures and tests throughout hospitalization: Pending Orders 03/30/17 01:27 Factor V Leiden (R506Q) Mutati Stat Homocysteine Stat Lupus Anticoag Prof Stat Phospholipid Ab IgA, S Stat Phospholipid Ab IgG, S Stat Phospholipid Ab IgM, S Stat Protein C Activity Plasma Stat Protein S Activity Plasma Stat Prothrombin [id number] Mutation, Stat 04/01/17 10:34 Fibrinogen Q12H Partial Thromboplastin Time Q12H 04/01/17 22:45 Fibrinogen Q12H Partial Thromboplastin Time Q12H Labs on day of discharge: Labs from last 24 hours 04/01/17 03/31/17 03/31/17 08:06 23:33 20:04 Fibrinogen 306 Circ Anticoag PTT 31.0 Protein C Activity Antithrombin III Activ Factor VIII Activity Factor Inhibitor Assay POC Glucose 66 L 103 Phospholipid IgA Ab 03/31/17 03/31/17 03/31/17 16:30 11:54 10:36 Fibrinogen 306 Circ Anticoag PTT 29.5 Protein C Activity Antithrombin III Activ Factor VIII Activity Factor Inhibitor Assay POC Glucose 110 H 82 Phospholipid IgA Ab 03/30/17 03/30/17 01:27 01:27 Fibrinogen Circ Anticoag PTT Protein C Activity 135 Antithrombin III Activ 98 Factor VIII Activity 161 Factor Inhibitor Assay 97 POC Glucose Phospholipid IgA Ab < 9.4 DS: Provider Date of admission: 03/29/17 22:21 Primary care physician: . No PCP Attending physician on admission: Sunday Del Rio MD Consults: 03/30/17 00:42 Consult to Physician [CONS] Routine Comment: Consulting Provider: Lilliam Huang Consulting Provider Notified: Yes When should Consulting Provider be notified: Now Consult to Specialist Group: Cardiology When should Consulting Provider be notified: Now Person Notified: IVÁN Date Notified: 03/31/17 Time Notified: 08:40 03/30/17 07:02 Consult to Physician [CONS] Routine Comment: ASMITA Consulting Provider: Bernice Osei 03/30/17 14:21 Consult to Sleep Center [CONS] Routine Reason for Sleep Center: Technologist Assist Consult Comment: "contact sleep lab to get patient set up with her prescribed CPAP of 10cm." Discharging clinician: Johnny Maher MD Expected date of discharge: 04/01/17
--- NOTE | 2017-04-01 11:10 | Discharge Summary ---
Hospital Course - Hospital Course Hospital Course: Discharge diagnosis: 1. Bilateral pulmonary emboli 2. Morbid obesity 3. Type II DM 4. Hypertension The patient presented to the hospital for evaluation of some dyspnea. CT pulmonary angiogram showed bilateral pulmonary emboli. She was taken to the cardiac Apartment Hotel Manager, and the emboli were extracted by cardiology. After the procedure, her dyspnea was greatly improved. She was placed on anticoagulants. She has it appears to be a family history of a hypercoagulable disorder, and results of her workup are pending at the time of this dictation. Medication reconciliation has been performed. Regular diet. Activity as tolerated. Follow-up with local physician in less than 1 week. This note was completed using [email or web address] voice recognition software. There may be wax pumper errors as a result. Diagnosis - Discharge Diagnosis (1) Bilateral pulmonary embolism Status: Acute Discharge Plan - Discharge Data Disposition: Disch To Home/Self Care Condition at Discharge: Stable Discharge Diet: advance to your usual diet Activity: resume usual activities as tolerated Hygiene: no restrictions - Discharge Medications New Rivaroxaban [Xarelto] 15 mg PO BID W/MEALS #30 tablet Continue hydroCHLOROthiazide [Hydrochlorothiazide] 50 mg PO DAILY Topiramate 25 mg PO BEDTIME Potassium Chloride [Klor-Con M20] 20 meq PO DAILY Losartan Potassium 25 mg PO DAILY Liraglutide [Victoza 2-Faizan] 1.2 ml SUBCUT AC BREAKFAST Furosemide 20 mg PO DAILY Ibuprofen 800 mg PO DAILY - Follow Up or Referral - Forms/Instructions Exam - Constitutional Vitals: Period Temp Pulse Resp BP Sys/Ashley Pulse Ox Last 24 Hr 96.6 F-98.0 F 77-99 18-22 83-131/54-87 93-98 Vital signs are noted above. Heart is regular with no murmur or gallop. Lungs are clear with no rales or wheezes. She is awake and alert. Discharge Results Procedures and tests throughout hospitalization: Pending Orders 03/30/17 01:27 Factor V Leiden (R506Q) Mutati Stat Homocysteine Stat Lupus Anticoag Prof Stat Phospholipid Ab IgA, S Stat Phospholipid Ab IgG, S Stat Phospholipid Ab IgM, S Stat Protein C Activity Plasma Stat Protein S Activity Plasma Stat Prothrombin [id number] Mutation, Stat 04/01/17 10:34 Fibrinogen Q12H Partial Thromboplastin Time Q12H 04/01/17 22:45 Fibrinogen Q12H Partial Thromboplastin Time Q12H Labs on day of discharge: Labs from last 24 hours 04/01/17 04/01/17 03/31/17 10:34 08:06 23:33 Fibrinogen 341 306 Circ Anticoag PTT 28.7 31.0 Protein C Activity Antithrombin III Activ Factor VIII Activity Factor Inhibitor Assay POC Glucose 66 L Phospholipid IgA Ab 03/31/17 03/31/17 03/31/17 20:04 16:30 11:54 Fibrinogen Circ Anticoag PTT Protein C Activity Antithrombin III Activ Factor VIII Activity Factor Inhibitor Assay POC Glucose 103 110 H 82 Phospholipid IgA Ab 03/31/17 03/30/17 03/30/17 10:36 01:27 01:27 Fibrinogen 306 Circ Anticoag PTT 29.5 Protein C Activity 135 Antithrombin III Activ 98 Factor VIII Activity 161 Factor Inhibitor Assay 97 POC Glucose Phospholipid IgA Ab < 9.4 DS: Provider Date of admission: 03/29/17 22:21 Primary care physician: . No PCP Attending physician on admission: Sunday Del Rio MD Consults: 03/30/17 00:42 Consult to Physician [CONS] Routine Comment: Consulting Provider: Lilliam Huang Consulting Provider Notified: Yes When should Consulting Provider be notified: Now Consult to Specialist Group: Cardiology When should Consulting Provider be notified: Now Person Notified: IVÁN Date Notified: 03/31/17 Time Notified: 08:40 03/30/17 07:02 Consult to Physician [CONS] Routine Comment: ASMITA Consulting Provider: Bernice Osei 03/30/17 14:21 Consult to Sleep Center [CONS] Routine Reason for Sleep Center: Technologist Assist Consult Comment: "contact sleep lab to get patient set up with her prescribed CPAP of 10cm." Discharging clinician: Johnny Maher MD Expected date of discharge: 04/01/17
[2017-04-01 12:11] LABS: Protein S Activity Plasma 133 % (50 - 160)
[2017-04-01 12:30] LABS: Homocysteine 10 mcmol/L
[2017-04-01 12:42] LABS: Reptilase Time, P 19 sec (14 - 23); Thrombin Time (Bovine), P 42 sec (15 - 23)
[2017-04-01 15:17] LABS: Phospholipid Ab IgM, S 10.4 MPL
[2017-04-02 10:11] LABS: DRVVT Screen Ratio 1.1 ratio (0.0 - 1.1); INR 1.2
[2017-04-02 12:48] LABS: F5DNA Reviewed By SEE COMMENTS; Factor V Leiden (R506Q) Mutati Negative (Negative); PTNT Reviewed By SEE COMMENTS
== END 2017-04-01 12:25 | disposition home or self-care (01) | DRG 176 ==
LOC: N.ED 19:06 → SUATTDRO 22:21 → N.EDINP 22:21 → N.CC 22:45 → N.4E 03-30 18:58
PROVIDERS: ADMIT Family Medicine; ATTEND Internal Medicine Geriatric Medicine

== ENCOUNTER 2021-11-11 16:07 | Observation (INO) ==
[2021-11-11] MEDS ORDERED: MAGNESIUM SULF RIDER 2 GM/50 ML PREMIX IV PRN (16:54)
[2021-11-11] MEDS ORDERED: GLUCAGON 1 MG VIAL IM PRN (16:54)
[2021-11-11] MEDS ORDERED: MAGNESIUM SULF RIDER 4 GM/100 ML PREMIX IV PRN (16:54)
[2021-11-11] MEDS ORDERED: ONDANSETRON 4 MG/2 ML VIAL IV PRN (16:54)
[2021-11-11] MEDS ORDERED: ACETAMINOPHEN 325 MG TABLET PO PRN (16:54)
[2021-11-11] MEDS ORDERED: DEXTROSE 10% 250 ML BAG IV PRN (17:22)
[2021-11-11] MEDS ORDERED: hydrALAZINE 20 MG/1 ML VIAL IV PRN (18:21)
[2021-11-11] MEDS: PANTOPRAZOLE 40 MG TABLET PO SCH (18:52)
[2021-11-11 19:03] LABS: Calcium 9.4 MG/DL (8.5-10.1); Osmolality,Calculated 270.7 MOS/KG (273-304); Potassium 3.2 MMOL/L (3.5-5.1)
[2021-11-11] MEDS: SODIUM CHLORIDE 0.9% 1,000 ML IV SCH (19:14)
[2021-11-11] MEDS: INSULIN LISPRO 100 UNIT/ML SUBCUT SCH (20:49)
[2021-11-11] MEDS: DOCUSATE SODIUM 100 MG CAPSULE PO SCH (21:22)
[2021-11-11] MEDS: VANCOMYCIN 125 MG CAPSULE PO SCH (23:36)
[2021-11-12] MEDS: SODIUM CHLORIDE 0.9% 1,000 ML IV SCH ×2 (02:07→10:40)
[2021-11-12 05:16] LABS: Basophils # 0.1 10*3/uL (0.0-0.2); Eosinophils # 0.1 10*3/uL (0.0-0.87); Eosinophils % 1.5 % (0.00-10.9); Hematocrit 38.5 VOL% (35.7-47.0); Hemoglobin 12.3 GM/DL (12.0-16.0); Immature Granulocytes % 0.2 %; Immature Granulocytes Absolute 0.01 #; Lymphocytes # 1.5 10*3/uL (1.4-4.0); Lymphocytes % 32.2 % (21.3-54.2); Mean Corpuscular HGB Conc 31.9 GM/DL (32-36); Monocytes % 9.2 % (1.7-12.7); Neutrophils % 55.9 % (38.7-73.9); Platelet Count 308 T/CUMM (130-400); Red Blood Count 4.28 MC/CUMM (3.8-5.5); Red Cell Distribution Width 13.2 % (9.3-17.3); White Blood Count 4.8 T/CUMM (4-12)
[2021-11-12 05:39] LABS: Albumin 2.8 G/DL (3.4-5.0); Bilirubin,Total 0.7 MG/DL (0.20-1.00); Calcium 8.7 MG/DL (8.5-10.1); Osmolality,Calculated 273.5 MOS/KG (273-304); Potassium 3.1 MMOL/L (3.5-5.1); Total Protein 6.8 G/DL (6.4-8.2)
[2021-11-12] MEDS: VANCOMYCIN 125 MG CAPSULE PO SCH (06:05)
[2021-11-12] MEDS: POTASSIUM CHLORIDE RIDER 10 MEQ/100 ML PREMIX IV PRN ×4 (06:05→10:40)
[2021-11-12] MEDS: INSULIN LISPRO 100 UNIT/ML SUBCUT SCH ×2 (07:46→11:30)
[2021-11-12] MEDS: PANTOPRAZOLE 40 MG TABLET PO SCH (08:08)
[2021-11-12] MEDS: DOCUSATE SODIUM 100 MG CAPSULE PO SCH (08:08)
[2021-11-12] MEDS ORDERED: VANCOMYCIN 125 MG CAPSULE PO SCH (09:00)
[2021-11-12 15:40] VITALS: BP 132/89
== END 2021-11-12 15:40 | disposition home or self-care (01) ==
LOC: N.5E 17:11 → INTOOBSV 17:11
PROVIDERS: ADMIT Family Medicine; ATTEND Family Medicine